=== PATIENT | female | born 1945 | race Caucasian/White ===

== ENCOUNTER 2021-05-21 06:01 | Day surgery (SDC) | payer MEDICARE, SELFPAY ==
[2021-05-20 09:31] VITALS: BMI 24.2
[2021-05-21 06:19] VITALS: BP 138/74; PULSE 76; RESP 18; TEMP 36.1; O2SAT 95
--- NOTE | 2021-05-21 07:54 | HMH.ANESCL ---
[facility] Anesthesia Checklist - Patient Identification Patient Identification: Arm Band - Structural Data Admitted From: Home Planned Operative Procedure/s: excision neoplasm right ear Consent for Planned Operative Procedure(s) Verified: Yes Verified Documents: Surgical Consent, History and Physical - NPO Status Verified Time NPO: 00:00 - Additional verifications Anesthesia Reactions: No Hx Blood Transfusions: No Blood Transfusion Reaction: No - Airway Assessment C-Spine Mobility Assessed: Yes (mp2) TMJ Mobility Assessed: Yes Dentition: Good Dentition - Neurological Assessment Level of Consciousness: Awake, Alert - Anesthesia Plan Anesthesia Risk discussed: Yes Anesthesia Plan: Verified ASA Class: II Anesthesia Type: MAC [facility] History I have reviewed the patient's past medical history: Yes Medical History: Reports:: Cancer (ear), Gastroesophageal Reflux Disease(GERD), Hypertension Denies:: Diabetes Mellitus Type 1, Diabetes Mellitus Type 2, Internal Pacemaker, MRSA, Seizures *Have you ever received a pneumonia vaccine?: Yes *Have you received a flu vaccine this season?: Yes (2019) Other Medical History: Denies: Blood Transfusion Reaction Anesthesia experience/problems:: nac Laterality Cases: Bilateral: Tonsillectomy Other Surgeries: Yes: Hysterectomy-Total, Skin Cancer Excision. No: Pacemaker Amputation: No - *Social History Last grade of school completed: High school graduate Smoking Status: Never smoker Alcohol Intake: never Substance Use Type: denies use *Occupational Status:: retired Housing: house *Travel in the last 8 weeks: None Family Hx:: Hypertension
--- NOTE | 2021-05-21 08:17 | HMH.OPNOTE ---
Date of procedure: 05/21/21 Pre-op Diagnosis:: 1. 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 The perilesional area was infiltrated with 3 cc of 2% lidocaine containing epinephrine. The lesion was marked out, the joe out was on the superior aspect of the right ear and measured 2.4 cm. The markup was incised and the lesion was excised and submitted. Anterior and posterior incisions were made, bleeding was stopped with bipolar cautery, blood loss was 5 cc and completely stopped. A tissue rearrangement geometric plastic repair was done with 2-0 nylon sutures. A Dermabond dressing was applied along with a dot test dressing and the patient was sent to recovery in good general condition. Condition: stable Disposition: PACU Complications:: none
[2021-05-21 08:18] VITALS: BP 121/64; PULSE 69; RESP 16; TEMP 36.4; O2SAT 90
[2021-05-21 08:33] VITALS: BP 115/58; PULSE 67; RESP 16; TEMP 36.4; O2SAT 90
[2021-05-21 08:48] VITALS: BP 120/62; PULSE 62; RESP 16; TEMP 36.7; O2SAT 96
== END 2021-05-21 08:50 | disposition home or self-care (01) ==
LOC: OR 06:06
PROVIDERS: PCP Family Medicine; Visit Provider Otolaryngology
DX: L82.1 Other seborrheic keratosis; D22.21 Melanocytic nevi of right ear and external auricular canal; Z85.828 Personal history of other malignant neoplasm of skin; I10 Essential (primary) hypertension; K21.9 Gastro-esophageal reflux disease without esophagitis; Z82.49 Family history of ischemic heart disease and other diseases of the circulatory system; Z79.899 Other long term (current) drug therapy; F32.9 Major depressive disorder, single episode, unspecified
CPT/HCPCS: 14060; 88305; 96374